=== PATIENT | male | born 1985 ===

== ENCOUNTER 2019-10-13 15:38 | Emergency (ER) | payer SELFPAY ==
[2019-10-13 15:58] VITALS: BP 125/73
--- NOTE | 2019-10-13 16:58 | ER Document Report ---
ED Medical Screen (RME) - General Chief Complaint: Chest Pain Stated Complaint: CHEST PAINS Time Seen by Provider: 10/13/19 16:53 Mode of Arrival: Ambulatory Information source: Patient Notes: 33-year-old male patient presenting to the emergency department chief complaint of chest pain. Patient reports right-sided chest pain that radiates up into his neck and jaw. Patient reports pain started approximately 3 PM, states that the pain is intermittent. Denies any nausea, vomiting or shortness of breath. Exam: Heart sounds S1-S2 present, normal rate, normal rhythm, lung sounds clear and equal bilaterally. I have greeted and performed a rapid initial assessment of this patient. A comprehensive ED assessment and evaluation of the patient, analysis of test results and completion of the medical decision making process will be conducted by additional ED providers. I have specifically instructed the patient or family members with the patient to immediately return to any nursing staff should anything change in the patient's condition or with their chief complaint. - Related Data Allergies/Adverse Reactions: amoxicillin Allergy (Verified 10/13/19 16:42) Penicillins Allergy (Verified 10/13/19 16:42) Past Medical History - Social History Frequency of alcohol use: None Drug Abuse: Marijuana Physical Exam - Vital signs Vitals: Temp Pulse Resp BP Pulse Ox 98.1 F 83 16 125/73 96 10/13/19 15:56 10/13/19 15:56 10/13/19 15:56 10/13/19 15:56 10/13/19 15:56 Course - Vital Signs Vital signs: Temp Pulse Resp BP Pulse Ox 98.1 F 83 16 125/73 96 10/13/19 15:56 10/13/19 15:56 10/13/19 15:56 10/13/19 15:56 10/13/19 15:56
[2019-10-13 17:39] LABS: ABSOLUTE BASOPHILS # (AUTO) 0.1 10^3/uL (0.0-0.2); ABSOLUTE EOSINOPHILS # (AUTO) 0.2 10^3/uL (0.0-0.6); ABSOLUTE LYMPHOCYTES (AUTO) 3.6 10^3/uL (0.5-4.7); ABSOLUTE MONOCYTES (AUTO) 0.9 10^3/uL (0.1-1.4); ABSOLUTE NEUT (AUTO) 6.1 10^3/uL (1.7-8.2); BASOPHILS % (AUTO) 0.8 % (0-2); EOSINOPHILS % (AUTO) 1.8 % (0-6); HEMATOCRIT 46.1 % (37.9-51.0); HEMOGLOBIN 16.1 g/dL (13.5-17.0); LYMPHOCYTES % (AUTO) 32.8 % (13-45); MEAN CORPUSCULAR HEMOGLOBIN 31.2 pg (27.0-33.4); MEAN CORPUSCULAR VOLUME 89 fl (80-97); MONOCYTES % (AUTO) 8.6 % (3-13); PLATELET COUNT 281 10^3/uL (150-450); RED BLOOD COUNT 5.18 10^6/uL (4.35-5.55); TOTAL CELLS COUNTED % (AUTO) 100 %; WHITE BLOOD COUNT 10.8 10^3/uL (4.0-10.5)
--- NOTE | 2019-10-13 17:45 | RADIOLOGY REPORT (SQ) ---
EXAM DESCRIPTION: CHEST 2 VIEWS COMPLETED DATE/TIME: 10/13/2019 4:11 pm REASON FOR STUDY: chest pain COMPARISON: None. EXAM PARAMETERS: NUMBER OF VIEWS: two views TECHNIQUE: Digital Frontal and Lateral radiographic views of the chest acquired. RADIATION DOSE: NA LIMITATIONS: none FINDINGS: LUNGS AND PLEURA: No opacities, masses or pneumothorax. No pleural effusion. MEDIASTINUM AND HILAR STRUCTURES: No masses or contour abnormalities. HEART AND VASCULAR STRUCTURES: Heart normal size. No evidence for failure. BONES: No acute findings. HARDWARE: None in the chest. OTHER: No other significant finding. IMPRESSION: NO ACUTE RADIOGRAPHIC FINDING IN THE CHEST. TECHNICAL DOCUMENTATION: JOB ID: [id number] [employer]- All Rights Reserved Reading location - IP/workstation name: [email or web address]
[2019-10-13 18:03] LABS: ALBUMIN 4.6 g/dL (3.5-5.0); ALKALINE PHOSPHATASE 58 U/L (38-126); ANION GAP 9 (5-19); ASPARTATE AMINO TRANSFERASE 21 U/L (17-59); BILIRUBIN,DIRECT 0.2 mg/dL (0.0-0.4); BILIRUBIN,TOTAL 0.3 mg/dL (0.2-1.3); BLOOD UREA NITROGEN 16 mg/dL (7-20); CALCIUM 9.8 mg/dL (8.4-10.2); CARBON DIOXIDE 28 mmol/L (22-30); CHLORIDE 101 mmol/L (98-107); GLUCOSE 95 mg/dL (75-110); POTASSIUM 4.5 mmol/L (3.6-5.0); TOTAL PROTEIN 7.5 g/dL (6.3-8.2)
--- NOTE | 2019-10-13 21:26 | ER Document Report ---
ED General - General Chief Complaint: Chest Pain Stated Complaint: CHEST PAINS Time Seen by Provider: 10/13/19 16:53 Mode of Arrival: Ambulatory Information source: Patient - Related Data Allergies/Adverse Reactions: amoxicillin Allergy (Verified 10/13/19 16:42) Penicillins Allergy (Verified 10/13/19 16:42) Past Medical History - General Information source: Patient - Social History Smoking Status: Current Every Day Smoker Cigarette use (# per day): Yes Chew tobacco use (# tins/day): No Smoking Education Provided: No Frequency of alcohol use: None Drug Abuse: Marijuana Family History: Reviewed & Not Pertinent Patient has suicidal ideation: No Patient has homicidal ideation: No Physical Exam - Vital signs Vitals: Temp Pulse Resp BP Pulse Ox 98.1 F 83 16 125/73 96 10/13/19 15:56 10/13/19 15:56 10/13/19 15:56 10/13/19 15:56 10/13/19 15:56 Course - Vital Signs Vital signs: Temp Pulse Resp BP Pulse Ox 98.1 F 83 16 125/73 96 10/13/19 15:56 10/13/19 15:56 10/13/19 15:56 10/13/19 15:56 10/13/19 15:56 - Laboratory Result Diagrams: 10/13/19 17:05 10/13/19 17:05 Laboratory results interpreted by me: 10/13/19 17:05 WBC 10.8 H Discharge - Discharge Clinical Impression: Eloped from emergency department Disposition: ELOPED
--- NOTE | 2019-10-14 07:05 | EKG REPORT ---
SEVERITY:- NORMAL ECG - SINUS RHYTHM : Confirmed by: Joseph Dotson MD 14-Oct-2019 07:05:05
== END 2019-10-14 00:32 | disposition left against medical advice (07) ==
LOC: ER 15:38
DX: R07.9 Chest pain, unspecified (principal); F17.210 Nicotine dependence, cigarettes, uncomplicated; F12.10 Cannabis abuse, uncomplicated; Z53.20 Procedure and treatment not carried out because of patient's decision for unspecified reasons; Z88.0 Allergy status to penicillin
CPT/HCPCS: 36415; 71046; 80053; 84484; 85025; 93005; 93010; 99281